=== PATIENT | female | born 2000 | race Caucasian/White ===

== ENCOUNTER 2019-04-29 12:07 | Emergency (ER) | payer MEDICAID ==
[2019-04-29] MEDS ORDERED: IBUPROFEN 600 MG TABLET PO ONE (12:16)
--- NOTE | 2019-04-29 12:16 | Emergency Department Record ---
History of Present Illness - General Chief complaint: Extremity Problem Stated complaint: RIGHT HAND INJURY Time Seen by Provider: 04/29/19 12:10 Source: Patient Mode of Arrival: Ambulatory Limitations: No limitations - History of Present Illness Initial comments: 18 yo female presents after punching a wall out of frustration just prior to arrival. She is right handed. No injury to skin or nails. No other complaints of pain or injury. No numbness or tingling. No prior right hand history or disease or injury. She declined pain medication on arrival. MD Complaint: Extremity pain, Extremity swelling, Joint pain -: Minutes(s) Location: Right History of Same: No -: Yes Arthralgia Radiation: Distal Quality: Aching Consistency: Constant Improves with: Elevation, Immobilization Worsens with: Palpation Associated Symptoms: Denies other symptoms - Related Data Allergies Allergy/AdvReac Type Severity Reaction Status Date / Time No Known Drug Allergies Allergy Unverified 07/10/17 12:30 Review of Systems Constitutional: Denies: Chills, Fever, Malaise, Weakness Eyes: Denies: Eye discharge ENT: Denies: Congestion, Throat pain Respiratory: Denies: Cough Cardiovascular: Denies: Chest pain, Syncope Endocrine: Denies: Fatigue Gastrointestinal: Denies: Abdominal pain, Diarrhea, Nausea, Vomiting Genitourinary: Denies: Dysuria, Urgency Musculoskeletal: Reports: As per HPI, Arthralgia Skin: Reports: As per HPI, Bruising. Denies: Change in color, Rash Neurological: Denies: Headache Psychiatric: Denies: Anxiety Hematological/Lymphatic: Denies: Easy bleeding, Easy bruising Physical Exam - General General Appearance: Alert, Oriented x3, Cooperative, No acute distress Limitations: No limitations - Head Head exam: Atraumatic, Normal inspection - Eye Eye exam: Normal appearance, PERRL. negative: Conjunctival injection, Scleral icterus - ENT ENT exam: Normal exam Ear exam: Normal external inspection Nasal Exam: Normal inspection Mouth exam: Normal external inspection - Neck Neck exam: Normal inspection - Cardiovascular Cardiovascular Exam: Regular rate, Normal rhythm Peripheral Pulses: 2+: Radial (R) - Extremities Extremities exam: Full ROM, Joint swelling, Normal capillary refill, Tenderness. negative: Normal inspection, Calf tenderness, Pedal edema Image of Hand: 1 - mild swelling, tender over the 5th MC MCP, normal alignment, no deformity, intact skin - Neurological Neurological exam: Alert, Normal gait, Oriented X3. negative: Motor sensory deficit - Psychiatric Psychiatric exam: Normal affect, Normal mood - Skin Skin exam: Dry, Intact, Normal color, Warm Course - Reevaluation(s) Reevaluation #1: 04/29/19 12:30 The XR was reviewed No definite acute fracture or bony abnormality We discussed home care with rest, ice, elevation We discussed recheck in 7-10 days if any pain continues Disposition Disposition: Discharge Clinical Impression: Contusion of hand, right Disposition: Home, Self-Care Condition: (1) Good Instructions: Hand Sprain (ED) Additional Instructions: You will need to keep the hand elevated to minimize swelling Use the ice pack every 4-6 hours for 15 minutes to minimize swelling Use the splint provided to protect the hand until it heals See your doctor in the next one week if any pain continues Forms: Patient Portal Access Time of Disposition: 12:31 Quality - Quality Measures Quality Measures: N/A - Blood Pressure Screening Does Patient Have Any of the Following: No Blood Pressure Classification: Pre-Hypertensive BP Reading Systolic Measurement: 124 Diastolic Measurement: 87 Screening for High Blood Pressure: < Pre-Hypertensive BP, F/U Documented > [G8950] Pre-Hypertensive Follow-up Interventions: Referral to alternative/primary care provider.
--- NOTE | 2019-04-30 08:29 | RADIOLOGY REPORT ---
EXAM: RIGHT HAND HISTORY: PUNCHED A WALL TODAY. PAIN AT THE FIFTH METACARPAL. TECHNIQUE: Three views of the right hand were obtained. Comparison: None. FINDINGS: Soft tissue swelling is noted overlying the fifth knuckle. There is no soft tissue air or foreign body. The bones appear intact. There is no visible acute fracture or dislocation. IMPRESSION: 1. DORSAL SOFT TISSUE SWELLING. 2. NO FRACTURE IDENTIFIED. JOB NUMBER: [id number] [facility]
== END 2019-04-29 12:59 | disposition home or self-care (01) ==
LOC: ER 12:07
DX: S60.221A Contusion of right hand, initial encounter (principal); W22.8XXA Striking against or struck by other objects, initial encounter
CPT/HCPCS: 99283